=== PATIENT | male | born 1970 | race African-American/Black ===

== ENCOUNTER 2024-11-04 14:50 | Emergency (ER) | payer MEDICAID, OTHER ==
[~2024-11-04] VITALS: Ht 190.5 cm; Wt 117.9 kg
[2024-11-04] MEDS ORDERED: METFORMIN (15:13)
[2024-11-04] MEDS ORDERED: AMLODIPINE (15:13)
[2024-11-04] MEDS ORDERED: LISINOPRIL (15:13)
[2024-11-04] MEDS ORDERED: NEOMY/BACITRA/POLYMYXIN B OINT UD PACKET TP ONE (15:39)
[2024-11-04] MEDS: NEOMY/BACITRA/POLYMYXIN B OINT UD PACKET TP ONE (15:54)
[2024-11-04 16:14] VITALS: BP 140/75; O2SAT 99
== END 2024-11-04 16:16 | disposition home or self-care (01) ==
LOC: ER 14:50
DX: S01.01XA Laceration without foreign body of scalp, initial encounter (principal); E11.9 Type 2 diabetes mellitus without complications; I10 Essential (primary) hypertension; Z88.5 Allergy status to narcotic agent; W50.0XXA Accidental hit or strike by another person, initial encounter; Y93.89 Activity, other specified; Y92.89 Other specified places as the place of occurrence of the external cause; Y99.8 Other external cause status
CPT/HCPCS: A4606; A4663